=== PATIENT | male | born 1980 | race Caucasian/White ===

== ENCOUNTER 2019-05-04 19:13 | Emergency (ER) | payer BC ==
[~2019-05-04] VITALS: Ht 172.7 cm; Wt 81.7 kg
== END 2019-05-04 21:22 | disposition home or self-care (01) ==
LOC: ER 19:13
DX: S61.412A Laceration without foreign body of left hand, initial encounter (principal); W26.0XXA Contact with knife, initial encounter
CPT/HCPCS: 12002; 99282-25